=== PATIENT | female | born 1940 | race Two or more races ===

== ENCOUNTER → 2016-12-07 | Outpatient (CLI) | payer MEDICARE, OTHER ==
[~2016-12-07] MED LIST: ADVAIR 2501 DISK W/D PO; ALPHAGAN P10 ML OP; ANTIVERT PO; ASPIRIN PO; AUGMENTIN875 MG DOB; CELEXA PO; CIPRO PO; CLARITIN10 MG PO; DARVOCET-N 1001 TAB PO; FLEXERIL PO; KCL PO; KEFLEX PO; KETOPROFEN PO; LORTAB 5/500 TA1 TA1 PO; LORTAB 5/500 TA1 TA2 PO; MEDROL DOSEPAK4 MG PO; MOBIC PO; NEURONTIN PO; PREVACID PO; PRILOSEC PO; REGLAN PO; SENNA S TABLET1 TAB PO; TUSSIONEX PO; VICODIN 5/500 T1 TAB PO; ZANAFLEX PO; ZITHROMAX PO; ZOFRANODT PO; ZYRTEC10 M2 PO
--- NOTE | ~2016-12-07 | CT98 ---
[facility] A Service of [facility] & [facility] / [facility] RADIOLOGY TEXT RESULTS PATIENT: ISABELLE ORTA LOCATION: [facility] : 42 UNIT #: [id number] AGE: [address]: Raman Mathur MD SEX: F ORDER DR: [id number] [facility] [address] [place], [place] [address] [id number] O MR#: [id number] #: [id number] NAME: ISABELLE ORTA. : 1940 SEX: F STUDY DATE/TIME: 12/07/2016 15:41 UNIT: [facility] ROOM: STUDY DESCRIPTION: CT Lumbar Spine Wo Cont Attending Physician: Raman Mathur M.D. Referring Physician: Raman Mathur M.D. Ordering Physician: Raman Mathur M.D. Primary Care Physician: Sai Haider M.D. MEDICAL IMAGING REPORT This report is preliminary unless electronic signature is present EXAM CT lumbar spine without HISTORY Low-back pain off and on for 2 months. No recent injury. No cancer history. The patient has a cochlear implant. COMMENTS CT of the lumbar spine performed in the axial plane without contrast followed by sagittal and coronal reconstructed images. This CT exam was performed with one or more of the following radiation dose reduction techniques: automatic exposure control, adjustment of mA and/or kV according to patient size, and iterative reconstruction. COMPARISON 02/19/2014 FINDINGS Redemonstrated is anterolisthesis of L5 on S1 secondary to chronic L5 pars defects. This measures about 1 cm currently and is grade 2 and is progressed from 02/19/2014. There is endplate sclerosis, remodelling of the L5-S1 endplates and vacuum disc formation with severe loss of intervertebral disc height. There is mild chronic compression deformity of L1 and moderate chronic compression deformity of T11. CT scanning is less sensitive than MR for soft tissue assessment. Patient is probably not a candidate for MRI since there is a history given of cochlear implant. T10-11, no bony canal or foraminal compromise. T11-12, minor endplate spondylosis but no bony canal or foraminal impingement. [facility] A Service of [facility] & [facility] / [facility] RADIOLOGY TEXT RESULTS PATIENT: ISABELLE ORTA LOCATION: [facility] : 42 UNIT #: [id number] AGE: [address]: Raman Mathur MD SEX: F ORDER DR: T12-L1, minor endplate spondylosis. No canal or bony foraminal impingement. At L1-2, no canal or bony foraminal compromise. At L2-3, mild facet degenerative change and ligamentum flavum thickening. Mild concentric disc bulge likely. Mild canal stenosis likely. No bony foraminal impingement. At L3-4, mild facet degenerative change and ligamentum flavum thickening bilaterally. Probably a mild concentric disc bulge and some mild canal stenosis. There is no bony foraminal narrowing. L4-5, moderate facet degenerative change bilaterally likely mild concentric disc bulge at least and some ligamentum flavum thickening. Some canal stenosis present and probably fairly severe bony foraminal narrowing bilaterally. At L5-S1, the above-noted anterolisthesis of 5 on 1. This is associated with severe foraminal narrowing and probably mild canal stenosis. Please be aware the study is limited by the patient's obesity such that the images are very grainy and this particularly limits evaluation of the soft tissues. IMPRESSION There is redemonstration of anterolisthesis of L5 on S1 secondary to chronic L5 pars defects. This has progressed from 02/19/2014, and is a grade 2 about 1 cm measurement. This is associated with severe foraminal impingement bilaterally at the 5-1 level and some component of canal stenosis. Additionally there is canal and foraminal impingement at the 4-5 level, details provided above. Chronic compression fractures at L1 and T11. Please be aware that the study is limited for evaluation of the soft tissues because of the patient's obesity such that the images are very grainy. Unfortunately, it appears that this patient is not a candidate for an MRI since a history of cochlear implant is given. Dictated by... Unique Warren M.D. THIS IS AN ELECTRONICALLY VERIFIED REPORT Unique Warren M.D. at 12/08/2016 5:08 PM SAC/to TD: 12/08/2016 16:20 JOB #: [id number] MEDICAL IMAGING REPORT [facility] A Service of [facility] RADIOLOGY TEXT RESULTS PATIENT: ISABELLE ORTA LOCATION: [facility] #: [id number] : 42 UNIT #: [id number] AGE: [address]: Raman Mathur MD SEX: F ORDER DR: Page 1 of 1 COPY
== END | disposition home or self-care (01) ==
LOC: CCAT 15:22
DX: R10.2 Pelvic and perineal pain (principal); M43.17 Spondylolisthesis, lumbosacral region; M48.07 Spinal stenosis, lumbosacral region
CPT/HCPCS: 72131